=== PATIENT | female | born 1985 | race Hispanic/Latino ===

== ENCOUNTER 2021-04-25 21:08 | Emergency (ER) | payer OTHER ==
[2021-04-26] MEDS ORDERED: DIPHENHYDRAMINE 50 MG/ML VIAL ONE (00:21)
[2021-04-26] MEDS ORDERED: METOCLOPRAMIDE 10 MG/2mL INJ ONE (00:21)
[2021-04-26] MEDS ORDERED: NA CHLORIDE 0.9% 1,000 ML ONE (00:21)
--- NOTE | 2021-04-26 01:55 | EDPHYS ---
Physician Documentation [facility] Name: Cece Ho Estrada Age: 35 yrs Sex: Female : 1985 Arrival Date: 04/25/2021 Time: 21:10 Bed 13 Private MD: MELINDA Physician Wing Salvador HPI: 04/25 22:14 This 35 yrs old Female presents to ER via Ambulatory with complaints of jmm Headache. 22:14 The patient complains of pain to the left frontal area, left side of the back of head, jmm left temporal area and left occipital area. Onset: The symptoms/episode began/occurred gradually. Associated signs and symptoms: Pertinent negatives: fever, neck stiffness, paresthesias, Photophobia vision changes, vomiting, weakness. The patient has not experienced similar symptoms in the past. Historical: - Allergies: 21:52 No Known Allergies; df1 - Home Meds: 21:52 None [Active]; df1 - PMHx: 21:52 None; df1 - PSHx: 21:52 None; df1 - Immunization history:: Adult Immunizations up to date, Client reports receiving the 1st dose of the Covid vaccine. - Social history:: Smoking status: Patient denies any tobacco usage or history of. Patient/guardian denies using alcohol, street drugs. ROS: 22:14 Constitutional: Negative for fever, chills, and weight loss, Cardiovascular: Negative jmm for chest pain, palpitations, and edema, Respiratory: Negative for shortness of breath, cough, wheezing, and pleuritic chest pain. 22:14 Neuro: Positive for headache. 22:14 All other systems are negative. Exam: 22:14 Constitutional: This is a well developed, well nourished patient who is awake, alert, jmm and in no acute distress. Head/Face: atraumatic. Eyes: EOMI, no conjunctival erythema appreciated ENT: Moist Mucus Membranes Neck: Trachea midline, Supple Chest/axilla: Normal chest wall appearance and motion. Cardiovascular: Regular rate and rhythm. No edema appreciated Respiratory: Normal respirations, no respiratory distress appreciated Abdomen/GI: Non distended, soft Back: Normal ROM Skin: General appearance color normal MS/ Extremity: Moves all extremities, no obvious deformities appreciated, no edema noted to the lower extremities Neuro: Awake and alert, normal gait Psych: Behavior is normal, Mood is normal, Patient is cooperative and pleasant Vital Signs: 21:49 BP 136 / 88; Pulse 62; Resp 18; Temp 98.4; Pulse Ox 100% on R/A; Weight 68.04 kg; df1 Height 5 ft. 2 in. (157.48 cm); Pain 10/10; 23:00 BP 149 / 88; Pulse 72; Resp 17; Pulse Ox 100% ; Pain 10/10; dc2 23:45 Pain 10/10; dc2 23:50 Pain 10/10; dc2 04/26 00:30 BP 107 / 73; Pulse 73; Resp 17; Pulse Ox 100% ; Pain 10/10; dc2 01:15 BP 116 / 65; Pulse 58; Resp 18; Pulse Ox 100% on R/A; jb4 02:14 BP 108 / 78; Pulse 59; Resp 16; Pulse Ox 98% on R/A; jb4 04/25 21:49 Body Mass Index 27.44 (68.04 kg, 157.48 cm) df1 [place] Coma Score: 04/25 23:00 Eye Response: spontaneous(4). Verbal Response: oriented(5). Motor Response: obeys dc2 commands(6). Total: 15. MDM: 22:14 Patient medically screened. [facility] 04/26 01:54 Data reviewed: vital signs, nurses notes. Counseling: I had a detailed discussion with shayy the patient and/or guardian regarding: the historical points, exam findings, and any diagnostic results supporting the discharge/admit diagnosis, radiology results, the need for outpatient follow up, to return to the emergency department if symptoms worsen or persist or if there are any questions or concerns that arise at home. ED course: Patient states feeling better. CT and CTA were negative. Patient advised to follow-up with neurology for further evaluation otherwise given strict return precautions. Patient understood agrees plan of care.. 04/26 01:08 Order name: CREATININE WHOLE BLOOD; Complete Time: 01:17 EDAR 04/25 22:58 Order name: CT Head Brain wo Cont [facility] 04/25 22:58 Order name: CT Head Angio [facility] 04/25 22:58 Order name: Saline Lock; Complete Time: 23:33 [facility] Administered Medications: 04/24 23:30 Drug: NS 0.9% 1000 ml Route: IV; Rate: 1 bolus; Infused Over: 1 hrs; Site: right dc2 antecubital; Delivery: Primary tubing; 04/26 00:30 Follow up: Response: No adverse reaction; Marked relief of symptoms; IV Status: jb4 Completed infusion; IV Intake: 1000ml 04/25 23:33 Drug: Reglan (metoCLOPramide) 20 mg Route: IVP; Site: right antecubital; dc2 23:45 Follow up: Pain 10 Adult dc2 04/26 00:30 Follow up: Response: No adverse reaction; Marked relief of symptoms jb4 04/25 23:33 Drug: diphenhydrAMINE 12.5 mg Route: IVP; Site: right antecubital; dc2 23:50 Follow up: Pain 05/13 Adult dc2 04/26 00:30 Follow up: Response: No adverse reaction; Marked relief of symptoms jb4 Point of Care Testing: Urine : 04/25 23:00 hCG Reading: Negative; Control Reading: Positive; dc2 Disposition: 04/26 06:04 Co-signature as Attending Physician, Wing Salvador MD I agree with the assessment and kayce plan of care. Disposition Summary: 04/26/21 01:55 Discharge Ordered Location: Home jm Condition: Stable jmm Diagnosis - Headache jm Followup: jm - With: Kyle Mohan MD - When: 2 - 3 days - Reason: Recheck today's complaints, Continuance of care, Re-evaluation by your physician Discharge Instructions: - Discharge Summary Sheet jmm - Migraine Headache jm Forms: - Medication Reconciliation Form jm - Thank You Letter jm - Antibiotic Education jm - Prescription Opioid Use [facility] Signatures: Dispatcher [employer] Wing Conway MD MD cha Mickail, Joel, PA PA jmm Furlich, Dawn df1 Matilde Spencer RN RN dc2 Ulises Ríos RN jb4
--- NOTE | 2021-04-26 01:55 | ER ---
Nurse's Notes [facility] Name: Cece Ho Estrada Age: 35 yrs Sex: Female : 1985 Arrival Date: 04/25/2021 Time: 21:10 Bed 13 Private MD: Diagnosis: Headache Presentation: 04/25 21:49 Chief complaint: Patient states: headache. Coronavirus screen: Vaccine status: Patient df1 reports receiving the 1st dose of the Covid vaccine. Date October 02, 2020 Client denies travel out of the [place] in the last 14 days. Client presents with at least one sign or symptom that may indicate coronavirus-19. Standard/surgical mask placed on the client. Client reports previous positive COVID test result. Date of collection: April 10, 2021. Ebola Screen: Patient negative for fever greater than or equal to 101.5 degrees Fahrenheit, and additional compatible Ebola Virus Disease symptoms. Initial Sepsis Screen: Does the patient meet any 2 criteria? No. Patient's initial sepsis screen is negative. Risk Assessment: Do you want to hurt yourself or someone else? Patient reports no desire to harm self or others. Onset of symptoms was April 24, 2021. 21:49 Method Of Arrival: Ambulatory df1 21:49 Acuity: DESIRAE 3 df1 21:54 Note Pt tested positive for Covid on 04/10/21. States H/A x 1 day with nausea. Tylenol df1 taken at 1800. 23:00 Initial Sepsis Screen: Does the patient meet any 2 criteria? No. Patient's initial dc2 sepsis screen is negative. Does the patient have a suspected source of infection?. Triage Assessment: 21:53 Headache History: Denies prior headaches. General: Appears in no apparent distress. df1 Behavior is calm, cooperative. Pain: Pain currently is 10 out of 10 on a pain scale. Pain began suddenly. Neuro: No deficits noted. 23:00 Pain: Complains of pain in generalized headache Also complains of. dc2 Historical: - Allergies: 21:52 No Known Allergies; df1 - Home Meds: 21:52 None [Active]; df1 - PMHx: 21:52 None; df1 - PSHx: 21:52 None; df1 - Immunization history:: Adult Immunizations up to date, Client reports receiving the 1st dose of the Covid vaccine. - Social history:: Smoking status: Patient denies any tobacco usage or history of. Patient/guardian denies using alcohol, street drugs. Screenin:53 Abuse screen: Denies threats or abuse. Nutritional screening: No deficits noted. df1 Tuberculosis screening: No symptoms or risk factors identified. Fall Risk None identified. Assessment: 23:00 Reassessment: Patient is alert, oriented x 3, equal unlabored respirations, skin dc2 warm/dry/pink. PT with complaints of generalized headache that started about 7pm this evening. Denies Nausea, vomiting or photophobia. Reports thinking she took 500mg tylenol without relief. Pt reports being dx with Covid on April 10 and states other family members in the house currently have covid. General: Appears in no apparent distress. well groomed, well developed. Pain: Complains of pain in head - generalized pain all over Pain does not radiate. Pain at worst was 10 out of 10 on a pain scale. Quality of pain is described as throbbing, Pain began 4 hours ago. Is continuous. Neuro: No deficits noted. Respiratory: No deficits noted. : No deficits noted. Musculoskeletal: No deficits noted. 04/26 00:00 Reassessment: Patient appears in no apparent distress at this time. Patient and/or jb4 family updated on plan of care and expected duration. Pain level reassessed. Patient is alert, oriented x 3, equal unlabored respirations, skin warm/dry/pink. 01:00 Reassessment: Patient appears in no apparent distress at this time. Patient and/or jb4 family updated on plan of care and expected duration. Pain level reassessed. Patient is alert, oriented x 3, equal unlabored respirations, skin warm/dry/pink. Patient states feeling better. Patient states symptoms have improved. 02:14 Reassessment: Patient appears in no apparent distress at this time. Patient and/or jb4 family updated on plan of care and expected duration. Pain level reassessed. Patient is alert, oriented x 3, equal unlabored respirations, skin warm/dry/pink. Vital Signs: 04/25 21:49 BP 136 / 88; Pulse 62; Resp 18; Temp 98.4; Pulse Ox 100% on R/A; Weight 68.04 kg; df1 Height 5 ft. 2 in. (157.48 cm); Pain 10/10; 23:00 BP 149 / 88; Pulse 72; Resp 17; Pulse Ox 100% ; Pain 10/10; dc2 23:45 Pain 10/10; dc2 23:50 Pain 10/10; dc2 04/26 00:30 BP 107 / 73; Pulse 73; Resp 17; Pulse Ox 100% ; Pain 10/10; dc2 01:15 BP 116 / 65; Pulse 58; Resp 18; Pulse Ox 100% on R/A; jb4 02:14 BP 108 / 78; Pulse 59; Resp 16; Pulse Ox 98% on R/A; jb4 04/25 21:49 Body Mass Index 27.44 (68.04 kg, 157.48 cm) df1 [place] Coma Score: 04/25 23:00 Eye Response: spontaneous(4). Verbal Response: oriented(5). Motor Response: obeys dc2 commands(6). Total: 15. ED Course: 21:10 Patient arrived in ED. bp1 21:52 Triage completed. df1 21:54 Tobi Cazares PA is PHCP. jmm 21:54 Wing Salvador MD is Attending Physician. jmm 22:56 Arm band placed on right wrist. ms4 22:57 Patient has correct armband on for positive identification. Bed in low position. Call ms4 light in reach. 23:00 Pulse ox on. NIBP on. dc2 23:00 No provider procedures requiring assistance completed. dc2 23:15 Inserted saline lock: 20 gauge in right antecubital area, using aseptic technique. dc2 Blood collected. 23:55 Patient moved back from [address]. dc2 04/26 00:00 CT Head Brain wo Cont In Process Unspecified. EDMS 00:01 CT Head Angio In Process Unspecified. EDMS 01:30 Ulises Ríos, RN is Primary Nurse. jb4 01:55 Kyle Mohan MD is Referral Physician. jmm 02:14 IV discontinued, intact, bleeding controlled, No redness/swelling at site. Pressure jb4 dressing applied. Administered Medications: 04/24 23:30 Drug: NS 0.9% 1000 ml Route: IV; Rate: 1 bolus; Infused Over: 1 hrs; Site: right dc2 antecubital; Delivery: Primary tubing; 04/26 00:30 Follow up: Response: No adverse reaction; Marked relief of symptoms; IV Status: jb4 Completed infusion; IV Intake: 1000ml 04/25 23:33 Drug: Reglan (metoCLOPramide) 20 mg Route: IVP; Site: right antecubital; dc2 23:45 Follow up: Pain 10 Adult dc2 04/26 00:30 Follow up: Response: No adverse reaction; Marked relief of symptoms jb4 04/25 23:33 Drug: diphenhydrAMINE 12.5 mg Route: IVP; Site: right antecubital; dc2 23:50 Follow up: Pain 10 Adult dc2 04/26 00:30 Follow up: Response: No adverse reaction; Marked relief of symptoms jb4 Point of Care Testing: Urine : 04/25 23:00 hCG Reading: Negative; Control Reading: Positive; dc2 Intake: 04/26 00:30 IV: 1000ml; Total: 1000ml. jb4 Outcome: 01:55 Discharge ordered by . owen 02:14 Discharged to home ambulatory. jb4 02:14 Condition: stable 02:14 Discharge instructions given to patient, Instructed on discharge instructions, follow up and referral plans. Demonstrated understanding of instructions, follow-up care. 02:16 Patient left the ED. jb4 Signatures: Dispatcher [employer] EDMS Tobi Cazares PA PA jmm Bryson, James, RN RN jb4 Nely Rincon Mikaela, RN RN ms4 Anushka Ruiz df1 JohannaMatilde RN RN dc2 Corrections: (The following items were deleted from the chart) 00:32 04/24 23:30 NS 0.9% 1000 ml IV at 1 bolus in right antecubital dc2 dc2 04/26 02:16 01:00 Reassessment: Patient appears in no apparent distress at this time. Patient jb4 and/or family updated on plan of care and expected duration. Pain level reassessed. Patient is alert, oriented x 3, equal unlabored respirations, skin warm/dry/pink. jb4 02:16 02:14 Reassessment: Patient appears in no apparent distress at this time. Patient jb4 and/or family updated on plan of care and expected duration. Pain level reassessed. Patient is alert, oriented x 3, equal unlabored respirations, skin warm/dry/pink. jb4
[2021-04-26 02:56] VITALS: TEMP 98.4
[2021-04-26 03:04] VITALS: BP 108/78; O2SAT 98
--- NOTE | 2021-04-26 11:53 | RAD REPORT ---
EXAM DESCRIPTION: CTHead angio04/26/2021 6:24 am CLINICAL HISTORY: The patient is 35 years old and is Female; HEADACHE TECHNIQUE: Axial computed tomographic angiography images of the head with intravenous contrast. Sa gittal and coronal reformatted images were created and reviewed. This CT exam was performed using o ne or more of the following dose reduction techniques: automated exposure control, adjustment of th e mA and/or kV according to patient size, and/or use of iterative reconstruction technique. MIP rec onstructed images were created and reviewed. COMPARISON: No relevant prior studies available. FINDINGS: Right internal carotid artery: No acute findings. Intracranial segment is patent with no significant stenosis. No aneurysm. Right anterior cerebral artery: Unremarkable. No occlusion or significant stenosis. No aneur ysm. Right middle cerebral artery: Unremarkable. No occlusion or significant stenosis. No aneurys m. Right posterior cerebral artery: Unremarkable. No occlusion or significant stenosis. No aneu rysm. Right vertebral artery: Unremarkable as visualized. Left internal carotid artery: No acute findings. Intracranial segment is patent with no signif icant stenosis. No aneurysm. Left anterior cerebral artery: Unremarkable. No occlusion or significant stenosis. No aneury sm. Left middle cerebral artery: Unremarkable. No occlusion or significant stenosis. No aneurysm . Left posterior cerebral artery: Unremarkable. No occlusion or significant stenosis. No aneur ysm. Left vertebral artery: Unremarkable as visualized. Basilar artery: Unremarkable. No occlusion or significant stenosis. No aneurysm. Sinuses: Maxillary sinus mucosal thickening, left greater than right. Sphenoid sinus mucosal thi ckening. Partial opacification of some of the ethmoid air cells and left frontal sinus. IMPRESSION: No occlusion or significant stenosis. No aneurysm. Electronically signed by: Tito Hameed MD 04/26/2021 12:23 AM CDT Due to temporary technical issues with the PACS/Fluency reporting system, reports are being signed by the in house radiologist without review as a courtesy to ensure prompt reporting. The interpreting r adiologist is fully responsible for the content of the report.
--- NOTE | 2021-04-26 12:01 | RAD REPORT ---
EXAM DESCRIPTION: CT - Head Brain Wo Cont - 04/26/2021 6:25 am CLINICAL HISTORY: HEADACHE COMPARISON: None available TECHNIQUE: Axial CT of the head obtained from the skull apex to the skull base without contrast. Thi s exam was performed according to our departmental dose-optimization program, which includes automate d exposure control, adjustment of the mA and/or kV according to patient size and/or use of iterative reconstruction technique. FINDINGS: No acute intracranial hemorrhage identified. No mass, mass effect, shift of the midline, a bnormal extra-axial fluid collection or CT evidence of acute ischemic change identified. The ventricu lar system is unremarkable. No acute abnormalities of the supratentorial white matter, basal gangli a, cerebellum, or brainstem. Mild mucosal thickening of the paranasal sinuses. Mastoid air cells are well aerated. No skull fractu re identified. Visualized orbits and globes are unremarkable. IMPRESSION: 1. No acute intracranial abnormality identified. Electronically signed by: Kaiden Pope 04/26/2021 12:09 AM CDT Due to temporary technical issues with the PACS/Fluency reporting system, reports are being signed by the in house radiologist without review as a courtesy to ensure prompt reporting. The interpreting r adiologist is fully responsible for the content of the report.
== END 2021-04-26 02:16 | disposition home or self-care (01) ==
LOC: ER 21:08
DX: R51.9 Headache, unspecified (principal)
CPT/HCPCS: 96361; 82565; 70450; 70496; 96375; 96374; 99284; Q9967